=== PATIENT | female | born 1950 | race Caucasian/White ===

== ENCOUNTER → 2023-11-15 09:21 | Outpatient (REF) | payer OTHER, SELFPAY | LOC: HWWDC 09:21 | PROVIDERS: ATTENDING PHYSICIAN Nurse Practitioner Obstetrics & Gynecology; FAMILY PHYSICIAN Internal Medicine | DX: Z12.31 Encounter for screening mammogram for malignant neoplasm of breast (principal) | CPT/HCPCS: 77063; 77067 ==

== ENCOUNTER → 2024-07-27 11:21 | Outpatient (REF) | payer OTHER, SELFPAY | LOC: HWRAD 11:21 | PROVIDERS: ATTENDING PHYSICIAN Internal Medicine Rheumatology; FAMILY PHYSICIAN Internal Medicine; REFERRING PHYSICIAN Internal Medicine Endocrinology, Diabetes & Metabolism | DX: M81.0 Age-related osteoporosis without current pathological fracture (principal) | CPT/HCPCS: 77080 ==

== ENCOUNTER 2024-09-22 06:51 | Emergency (ER) | payer OTHER, SELFPAY ==
[2024-09-22 06:55] VITALS: BP 95/67
[2024-09-22 07:00] VITALS: BP 104/66
--- NOTE | 2024-09-22 07:32 | ED.GENMED ---
History of Present Illness
General
Chief Complaint: Heart Rate Problem
Source: patient
Exam Limitations: none
Time Seen by Provider: 09/22/24 07:30
Nursing documentation reviewed up to this point in time: agreed with
History of Present Illness
History of Present Illness:
74-year-old female with past medical history of paroxysmal A-fib presents to the ER for evaluation. Patient has been out of A-fib for 2 years and Eliquis was stopped by her physical design engineer Dr. Adames in 2022.
She had a recent right knee replacement at [facility] on September 18 and on September 19 had an episode of A-fib. She converted on her own while in the ER [facility] and was started on Eliquis. She has been taking Eliquis since then. In addition
prior to even being started on Eliquis she was on chronic metoprolol 37 mg twice daily.
Since the episode of A-fib several days ago she has been on Eliquis but this morning around 4:30 AM woke up to urinate and felt some palpitations although mildly breathless and felt she was in A-fib again. Her watch told her that her heart rate was
155 but she did not confirm she was in A-fib but she felt like she was.
She presently feels back to normal again. She had no associated chest pain with symptoms. no shortness of breath.
Instead of taking only 37 mg of her normal metoprolol this morning she took 50 mg and did take her 5 mg Eliquis dose.
She has no complaints related to her right knee replacement reports she feels that this is healing well. She denies any fever chills.
Past History
Past History
ED Past Medical History: Arrthythmia (Paroxysmal atrial fibrillation), Hypothyroidism, Other (Migraine headaches, arthritis) and Other (Spontaneous pneumothorax 1993)
ED Past Surgical History: and Orthopedic (Carpal tunnel release)
Social History
Tobacco: Non-smoker
Alcohol: None
Drug: None
Personal:
Living: with family
Employment: Employed
Family History
Family History: CAD and Other (Noncontributory)
Review of Systems
Review of Systems
Allergies reviewed?: Yes
All Other Systems: ROS reviewed and negative except as documented in HPI and ROS
Constitutional: Reports no symptoms; Denies fever, fatigue or chills
Respiratory: Reports trouble breathing (felt a little breathless with episode )
Cardiac: Reports palpitations
ABD/GI: Reports no symptoms
Musculoskeletal: Reports no symptoms
Skin: Reports no symptoms
Neurological: Reports no symptoms
Psychiatric: Reports no symptoms
Phy Exam
General Physical Exam
General Presentation: no apparent distress
General age: appears stated age
General Skin: warm and dry
General Habitus: normal
General Mental: alert
General Hydration: appears well hydrated
Cardiovascular Exam
Cardiovascular Exam: regular rate/rhythm, no murmur and normal peripheral pulses
Pulmonary Exam
Pulmonary Exam: lungs clear and no respiratory distress
Neurological Exam
Neurological Exam: alert and oriented x3
Musculoskeletal Exam
Musculoskeletal Exam: full ROM and other (Dressing in place to right lower extremity to anterior knee with surrounding ecchymosis nontender)
Skin Exam
Skin Exam: normal color and warm/dry
Course
Orders/Labs/Results
Orders:
Orders
09/22/24 06:57
EKG [Electrocardiogram (*1)] Urgent
Reason for Study: Palpitations
09/22/24 06:58
EKG- Treatment ONCE
09/22/24 07:43
Cardiac Monitoring- Treatment ONCE
IV Insert/Care/Rem.- Treatment PRN
0.9% Sodium Chloride 1000 ml [Nss] 1,000 ml IV BOLUS
09/22/24 07:47
Complete Blood Count/With Diff Urgent
Comprehensive Metabolic Panel Urgent
Free T4 Urgent
TSH Reflex To Free T4 Urgent
Abnormal Lab Results
09/22/24
07:47
WBC 13.2 H 10^3/uL
(4.8-10.8)
RBC 3.97 L 10^6/uL
(4.20-5.40)
Hgb 11.9 L g/dL
(12.0-16.0)
Hct 36.4 L %
(37.0-47.0)
MCHC 32.7 L g/dL
(33.0-37.0)
Abs Immat Gran (auto) 0.1 H 10^3/uL
(0-0.05)
Absolute Neuts (auto) 10.1 H 10^3/uL
(1.4-6.5)
Absolute Monos (auto) 1.3 H 10^3/uL
(0.1-0.6)
Neutrophils % 76.4 H %
(42.2-75.2)
Lymphocytes % 12.1 L %
(20.5-51.1)
Monocytes % 9.9 H %
(1.7-9.3)
Glucose 130 H mg/dl
(70-99)
ALT 39 H U/L
(0-35)
Total Protein 6.2 L g/dl
(6.3-8.2)
TSH (Reflex) 9.69 H uIU/ml
(0.47-4.68)
09/22/24 07:47
09/22/24 07:47
Vital Signs
Initial and Last Documented VS:
Initial Vital Signs
Temp Pulse Resp BP Pulse Ox
98.4 F 107 18 95/67 100
09/22/24 06:55 09/22/24 06:55 09/22/24 06:55 09/22/24 06:55 09/22/24 06:55
Last Documented Vital Signs
Temp Pulse Resp BP Pulse Ox
98.4 F 89 16 99/66 97
09/22/24 06:55 09/22/24 11:03 09/22/24 09:00 09/22/24 11:03 09/22/24 09:00
MDM/Problems Addressed
MDM/Problems Addressed:
As documented patient is a 74-year-old female who previously the past is a paroxysmal A-fib last episode 2022. Patient recently had right total knee replacement this week at [facility] on September 18 and the following day had an episode of
rapid A-fib seen in the ER [facility]. At that time she spontaneously converted on her own. She was however started on Eliquis and has been taking since. She has not missed her doses. This morning she felt again the sensation that she was in
A-fib however presented here in no acute distress in a normal sinus rhythm. Patient presents awake alert no acute distress no shortness of breath. She has been monitored here in the ER normal sinus rhythm.
Right knee with surgical dressing in place however no evidence of infection on exam strong distal pulses. She is afebrile.
She is well-appearing. Case discussed with cardiology on-call they do recommend that she increase her metoprolol. She is currently on 37.5 mg twice a day we will have her increase to 50 mg p.o. twice daily. She did take a dose of 50 on her own
prior to arrival.
No complaints of shortness of breath for concern for PE patient has not missed her Eliquis dose.
Labs reviewed TSH elevated however free T4 normal she does follow with endocrine. She was given a copy of her labs
*Pulse Oximetry
Patient hypoxic: no
*EKG
Interpreted by ED Provider?: Yes
Interpretation: normal
Comparison EKG: no comparison EKG present
Heart Rate: 97
Rate: normal
Rhythm: sinus
Ischemia: no ischemia
*Critical Care Note
Total Time (30-74mins, 75-104mins- exclusive of procedures): Not Applicable
Patient Management
Discussion with other providers: Auditing Coder (cardiology DR Goncalves )
ED Attending Note
-
Portions of this chart may have been created with voice recognition software.� Occasional wrong word or��sound alike� substitutions may have occurred due to the inherent limitations of voice recognition software.
Discharge Plan
Departure
Patient Disposition: Home (Routine Discharge)
Date of Disposition: 09/22/24
Time of Disposition: 10:43
Patient with high blood pressure during this ER visit?: No
Condition: Fair
Covid-19: Not Applicable
Discharge Problem:
Palpitation
Instructions: Palpitations (DC), BLOOD PRESSURE
Prescriptions:
No Action
loperamide 2 MG capsule
2 mg PO Q4HPRN PRN (Reason: diarrhea)
sumatriptan succinate 50 MG tablet
50 mg PO DAILYPRN PRN (Reason: migraine)
[id number] [Esgic] 1 EACH tablet
1 ea PO DAILYPRN PRN (Reason: migraine)
levothyroxine 150 MCG tablet
150 mcg PO DAILY
diclofenac sodium 25 MG tablet,delayed release (DR/EC)
25 mg PO DAILY
Patient Comments:
dose unknown
nabumetone 500 MG tablet
500 mg PO DAILYPRN PRN (Reason: mild pain)
Patient Comments:
dose unknown
peg 400-propylene glycol (PF) [Systane (PF)] 1 EACH dropperette
1 drp BOTH EYES HS
pregabalin 100 MG capsule
100 mg PO HSPRN PRN (Reason: insomnia)
pediatric multivitamin no.17 1 TABLET tablet,chewable
3 ea PO DAILY
metoprolol succinate 50 MG tablet extended release 24 hr
50 mg PO DAILY Qty: 30 11RF
apixaban [Eliquis] 5 MG tablet
5 mg PO BID Qty: 60 11RF
Referrals:
Michael Adames MD [Active] -
Edwin Benedict DO [Family Provider] -
Activity Restrictions/Additional Instructions:
As discussed increase metoprolol to 50 mg twice a day and follow-up closely with cardiology.
Continue your Eliquis and return if any worsening of symptoms including shortness of breath or any further concerns.
Interventions
Interventions:
*Risk Screen - Suicide Last Done: 09/22/24 06:55
*General Assessment Last Done: 09/22/24 06:55
*Neglect/Abuse Screening Last Done: 09/22/24 06:55
*ED- Fall Risk Assessment Last Done: 09/22/24 06:55
*ED COVID-19 Vaccine History Last Done: 09/22/24 06:55
*Nursing Disposition Last Done: 09/22/24 11:04
ED- Cardiac Assessment Last Done: 09/22/24 07:43
ED- Pulmonary Assessment Last Done: 09/22/24 11:02
Discharge Date and Time
Discharge Date/Time: 09/22/24 11:14
Print Language: SAMI
[2024-09-22] MEDS: NSS 1000 IV (07:59)
[2024-09-22 08:00] VITALS: BP 106/66; BMI 31.2
[2024-09-22 08:04] LABS: % Basophils 0.5 % (0-2); % Eosinophils 0.6 % (0-6); % Immature Granulocytes 0.5 % (0-0.5); % Lymphocytes 12.1 % (20.5-51.1); % Monocytes 9.9 % (1.7-9.3); % Neutrophils 76.4 % (42.2-75.2); Absolute Basophils 0.1 10^3/uL (0-0.2); Absolute Eosinophils 0.1 10^3/uL (0-0.7); Absolute Immature Granulocytes 0.1 10^3/uL (0-0.05); Absolute Lymphocytes 1.6 10^3/uL (1.2-3.4); Absolute Monocytes 1.3 10^3/uL (0.1-0.6); Absolute Neutrophils 10.1 10^3/uL (1.4-6.5); Hematocrit 36.4 % (37.0-47.0); Hemoglobin 11.9 g/dL (12.0-16.0); Mean Corp Hgb Conc. 32.7 g/dL (33.0-37.0); Mean Corpuscular Volume 91.7 fL (81.0-99.0); Mean Platelet Volume 9.8 fL (7.4-10.4); Nucleated Red Blood Cells % 0 %; Platelet Count 253 10^3/uL (130-400); Red Blood Cell Count 3.97 10^6/uL (4.20-5.40); Red Cell Dist. Width 13.6 % (11.5-14.5); White Blood Cell Count 13.2 10^3/uL (4.8-10.8)
[2024-09-22 08:21] LABS: ALT (SGPT) 39 U/L (0-35); AST (SGOT) 32 U/L (14-36); Albumin 3.6 g/dl (3.5-5.0); Alkaline Phosphatase 123 U/L (38-126); Blood Urea Nitrogen 13 mg/dl (7-17); Calcium 8.7 mg/dl (8.4-10.2); Carbon Dioxide 29 mmol/L (22-30); Chloride 101 mmol/L (98-107); Estimated Creatinine Clearance 82 ml/min; Glucose 130 mg/dl (70-99); Potassium 3.8 mmol/L (3.5-5.1); Sodium 136 mmol/L (135-145); Total Bilirubin 1.1 mg/dl (0.2-1.3); Total Protein 6.2 g/dl (6.3-8.2); eGFR > 60.00
[2024-09-22 08:52] LABS: TSH Reflex To Free T4 9.69 uIU/ml (0.47-4.68)
[2024-09-22 09:00] VITALS: BP 109/62
[2024-09-22 10:00] VITALS: BP 110/63
[2024-09-22 10:42] LABS: Free T4 1.08 ng/dl (0.78-2.19)
[2024-09-22 11:03] VITALS: BP 99/66
== END 2024-09-22 11:14 | disposition home or self-care (01) ==
LOC: EMR 06:51
PROVIDERS: Nurse Practitioner; EMERGENCY PHYSICIAN Emergency Medicine; FAMILY PHYSICIAN Internal Medicine
DX: R00.2 Palpitations (principal); I48.0 Paroxysmal atrial fibrillation; E03.9 Hypothyroidism, unspecified; Z79.01 Long term (current) use of anticoagulants; Z82.49 Family history of ischemic heart disease and other diseases of the circulatory system; Z96.651 Presence of right artificial knee joint
CPT/HCPCS: 99283; 96360; 80053; 84439; 84443; 85025; 93005

== ENCOUNTER → 2025-01-10 07:28 | Outpatient (REF) | payer OTHER, SELFPAY | LOC: HWWDC 07:28 | PROVIDERS: ATTENDING PHYSICIAN Nurse Practitioner Obstetrics & Gynecology; FAMILY PHYSICIAN Internal Medicine | DX: Z12.31 Encounter for screening mammogram for malignant neoplasm of breast (principal) | CPT/HCPCS: 77063; 77067 ==